=== PATIENT | female | born 1935 | race Two or more races ===

== ENCOUNTER 2022-10-31 11:00 | Emergency (ER) | payer MEDICAID ==
[~2022-10-31] VITALS: Ht 149.9 cm; Wt 54.5 kg
[2022-10-31 11:09] VITALS: TEMP 98.3
[2022-10-31] MEDS ORDERED: NEOMYCIN/POLYMYXIN B/HYDROCORT 10 ML OTIC SUSPENSION AD ONE (12:00)
[2022-10-31] MEDS ORDERED: AZIT250T9 PO (12:48)
[2022-10-31 13:09] VITALS: BP 140/65; PULSE 72; RESP 16
== END 2022-10-31 13:37 | disposition home or self-care (01) ==
LOC: EMS 11:00 → EDBD 11:00 → EMS 13:37
DX: H60.91 Unspecified otitis externa, right ear (principal); I10 Essential (primary) hypertension
CPT/HCPCS: 99283